=== PATIENT | male | born 1990 | race Caucasian/White ===

== ENCOUNTER 2017-10-07 06:48 | Day surgery (SDC) | payer OTHER ==
[~2017-10-07 06:48] MED LIST: POLYMYXIN/BACITRACIN 1L IRRIG
[2017-10-07] MEDS ORDERED: TOBRAMYCIN 1.2 GM POWDER (06:50)
[2017-10-07] MEDS ORDERED: TRANEXAMIC ACID 1,000 MG in DEXTROSE 5% 100 ML IVPB (07:00)
[2017-10-07] MEDS ORDERED: EPHEDrine SULFATE 50 MG/5 ML SYG (07:00)
[2017-10-07] MEDS ORDERED: CEFAZOLIN 2 GM/50 ML (PMX) 50 ML IVPB (07:00)
[2017-10-07] MEDS ORDERED: CEFAZOLIN 1 GM INJ ×2 (07:00→09:39)
[2017-10-07] MEDS ORDERED: INSULIN REGULAR, HUMAN 100 UNIT/1 ML 3ML VIAL IV (07:30)
[2017-10-07] MEDS: DEXAMETHASONE 1 MG TAB PO (07:44)
[2017-10-07] MEDS: INSULIN REGULAR, HUMAN 100 UNIT/1 ML 3ML VIAL SC ×2 (07:44→12:42)
[2017-10-07] MEDS: traMADol 50 MG TAB PO (07:45)
[2017-10-07] MEDS ORDERED: GLUCOSE GEL 15 GRAM TUBE PO ×2 (08:00)
[2017-10-07] MEDS ORDERED: GLUCOSE GEL 15 GRAM TUBE BUCCAL (08:00)
[2017-10-07] MEDS ORDERED: GLUCAGON 1 MG INJ IM (08:00)
[2017-10-07] MEDS ORDERED: DEXTROSE 50% 50 ML SYRINGE IV ×2 (08:00)
[2017-10-07] MEDS: BUPIVACAINE 0.5% (SDV) 30 ML, morphine SULFATE (PF) 8 MG, EPINEPHrine 0.3 MG, KETOROLAC... IRR (08:02)
[2017-10-07] MEDS: CA CHLORIDE 10% 10 ML SYRINGE (08:02)
[2017-10-07] MEDS ORDERED: FENTAnyl 50 MCG/ML VIAL ×2 (08:15→09:50)
[2017-10-07] MEDS ORDERED: MIDAZOLAM 1 MG/ML 2 ML INJ (08:15)
[2017-10-07] MEDS ORDERED: PROPOFOL 20 ML ×2 (08:15→10:02)
[2017-10-07] MEDS ORDERED: METOCLOPRAMIDE 10 MG INJ (08:16)
[2017-10-07] MEDS ORDERED: ONDANSETRON 4 MG INJ (08:16)
[2017-10-07] MEDS ORDERED: ROPIVACAINE 0.2% 20 ML VIAL (09:16)
[2017-10-07] MEDS: THROMBIN 5000 UNIT VIAL (09:26)
[2017-10-07] MEDS ORDERED: KETOROLAC 30 MG INJ (09:39)
[2017-10-07] MEDS ORDERED: ACETAMINOPHEN 1000MG/100ML IV 100 ML (09:39)
[2017-10-07] MEDS ORDERED: PHENYLephrine (100 MCG/ML) 5ML SYG (10:17)
[2017-10-07] MEDS: BUPIVACAINE 0.5%/EPI (SDV) 30 ML INJ INJ (11:06)
[2017-10-07] MEDS ORDERED: ONDANSETRON 4 MG INJ IV (11:30)
[2017-10-07] MEDS ORDERED: MEPERIDINE 25 MG INJ IV (11:30)
[2017-10-07] MEDS ORDERED: DIPHENHYDRAMINE 50 MG INJ IV (11:30)
[2017-10-07] MEDS ORDERED: HYDROmorphONE (0.2 MG/ML) 10ML SYG IV ×3 (11:30)
== END 2017-10-07 13:30 | disposition home or self-care (01) ==
LOC: SDS 06:48
DX: M25.311 Other instability, right shoulder (principal); E11.9 Type 2 diabetes mellitus without complications
CPT/HCPCS: 23462; 82962; 86999